=== PATIENT | female | born 1985 | race Caucasian/White ===

== ENCOUNTER 2017-07-18 11:10 | Emergency (ER) | payer OTHER ==
[2017-07-18 11:40] VITALS: BP 127/71
--- NOTE | 2017-07-18 12:04 | UC ---
Skin Complaint HPI - HPI Summary HPI Summary: Pt presents with itchy rash to face and upper chest. This began 2 days ago on her face. Tells me she woke up 2 days ago and had mild redness and itching on her face. This persisted all day. She took benadryl which relieved the itch and helped it eventually fade toward later that evening. Yesterday morning she woke up with the same symptoms, but they again went away with benadryl. This morning she woke up with the same symptoms returning and this time spreading to her upper chest. She denies new soaps/detergents, foods, SOB, throat/mouth/lip swelling, chest pain, or sore throat. Says that she has been feeling sick recently with "cold symptoms". Dry cough and some sinus congestion. No fever or sick contacts that she is aware of. She has an appt tomorrow with her PCP for this issue. Still smoking - History of Current Complaint Chief Complaint: UCSkin Stated Complaint: REDNESS,SWELLING IN FACE Hx Obtained From: Patient Hx Last Menstrual Period: Uterine ablasion Current Severity: None Pain Intensity: 0 - Allergy/Home Medications Allergies/Adverse Reactions: Allergies Allergy/AdvReac Type Severity Reaction Status Date / Time No Known Allergies Allergy Verified 07/18/17 11:34 Home Medications: Home Medications Gabapentin CAP(*) [Neurontin 300 CAP(*)] 900 mg PO DAILY 07/18/17 [History Confirmed 07/18/17] Review of Systems Constitutional: Negative Skin: Rash Eyes: Negative ENT: Negative Respiratory: Negative Cardiovascular: Negative Gastrointestinal: Negative Motor: Negative Neurovascular: Negative Musculoskeletal: Negative Neurological: Negative Psychological: Negative All Other Systems Reviewed And Are Negative: Yes PMH/Surg Hx/FS Hx/Imm Hx Previously Healthy: Yes Psychological History: Anxiety, Depression - Surgical History Surgical History: Yes Surgery Procedure, Year, and Place: 2004 & 2009 CSECTIONS X 2, [facility]. UTERINE ABLASION - Family History Known Family History: Positive: Unknown - Social History Occupation: Employed Full-time Lives: With Family Alcohol Use: Occasionally Substance Use Type: None Smoking Status (MU): Heavy Every Day Tobacco Smoker Amount Used/How Often: 1/2 PPD Length of Time of Smoking/Using Tobacco: 10+ YEARS Have You Smoked in the Last Year: Yes Household Exposure Type: Cigarettes Physical Exam Triage Information Reviewed: Yes Appearance: Well-Appearing, No Pain Distress, Obese Vital Signs: Initial Vital Signs Temp 97.6 F 07/18/17 11:36 Pulse 89 07/18/17 11:36 Resp 18 07/18/17 11:36 BP 127/71 07/18/17 11:36 Pulse Ox 100 07/18/17 11:36 Vital Signs Reviewed: Yes Eyes: Positive: Conjunctiva Clear, Other: - No edema. Negative: Conjunctiva Inflamed, Discharge ENT: Positive: Hearing grossly normal, Pharynx normal, TMs normal, Uvula midline. Negative: Pharyngeal erythema, Nasal congestion, Nasal drainage, TM bulging, TM dull, TM red, Tonsillar swelling, Tonsillar exudate, Hoarse voice, Sinus tenderness Neck: Positive: Supple, Nontender, No Lymphadenopathy Respiratory: Positive: Lungs clear, Normal breath sounds, No respiratory distress, No accessory muscle use Cardiovascular: Positive: RRR, No Murmur, Pulses Normal Neurological: Positive: Alert Psychological: Positive: Age Appropriate Behavior Skin: Positive: Other - Mildly erythematous rash on cheeks, chin, and anterior upper chest wall. No edema, pustules, nodules, streaking, discharge, bleeding, or ecchymosis. Course/Dx - Course Course Of Treatment: POC strep negative. Unsure the eitology of her rash, it most closely resembles Urticaria -- but she tells me that she has an appt tomorrow morning with her PCP for this rash. I will draw some labwork and try prednisone po and have her PCP review her labs tomorrow during her appointment. - Diagnoses Provider Diagnoses: Rash on chest Discharge - Discharge Plan Condition: Stable Disposition: HOME Prescriptions: predniSONE TAB* [Deltasone TAB*] 50 mg PO DAILY #5 tab Patient Education Materials: Urticaria (ED) Referrals: Abiodun Cuadra MD [Primary Care Provider] - Additional Instructions: If you develop a fever, shortness of breath, chest pain, new or worsening symptoms - please call your PCP or go to the ED. 1) Please follow up with your PCP tomorrow regarding your rash and blood work results.
[2017-07-18 15:57] LABS: ABS Basophils 0.1 10^3/ul (0-0.2); ABS Eosinophils 0.1 10^3/ul (0-0.6); ABS Lymphocytes 2.4 10^3/ul (1.0-4.8); ABS Monocytes 0.5 10^3/ul (0-0.8); ABS Neutrophils 7.9 10^3/ul (1.5-7.7); ABS Nucleated RBC 0 10^3/ul; Eosinophil % 1.3 % (0-6); Hematocrit 40 % (35-47); Hemoglobin 13.8 g/dl (12.0-16.0); Lymphocyte % 21.9 % (25-47); Mean Corpuscular HGB Conc 34 g/dl (31-36); Mean Corpuscular Hemoglobin 30 pg (27-31); Mean Corpuscular Volume 89 fL (80-97); Mean Platelet Volume 9 um3 (7.4-10.4); Nucleated Red Blood Cells % 0.1; Platelet Count 378 10^3/ul (150-450); Red Blood Count 4.54 10^6/ul (4.0-5.4); Red Cell Distribution Width 14 % (10.5-15)
[2017-07-18 16:15] LABS: EGFR Non-African American 127.3 (>60)
== END 2017-07-18 12:50 | disposition home or self-care (01) ==
LOC: UCEAST 11:10
DX: R21 Rash and other nonspecific skin eruption (principal); F41.9 Anxiety disorder, unspecified; F32.9 Major depressive disorder, single episode, unspecified; E66.9 Obesity, unspecified; F17.210 Nicotine dependence, cigarettes, uncomplicated
CPT/HCPCS: 36415; 80053; 82533; 84443; 85025; 87651; 99212; G0463